=== PATIENT | female | born 1950 | race Caucasian/White ===

== ENCOUNTER → 2017-07-28 | Outpatient (CLI) | payer OTHER, MEDICARE ==
[~2017-07-28] VITALS: Ht 162.6 cm; Wt 77.1 kg
[~2017-07-28] MED LIST: ACID CONTROL75 MG PO; AMBIEN 10 MG TA10 MG PO; ARMOUR THYROID15 M1 PO; ASPIRIN EC81 M1 PO; CALCIUM 600 +1 EA13 PO; CALCIUM OYSTER500 MG PO; CELEBREX 200 M200 MG PO; COLACE100 MG PO; CYMBALTA30 MG PO; ESTRA TOP; ESTRACE1 MG PO; ESTRADIOL; HYDROCODON-ACE1 EAC7 PO; HYDROCODONE-AP1 EAC6 PO; IMITREX20 MG NASAL; IMITREX20 MG NS; LEVOTHROID75 MCG PO; MS CONTIN15 MG PO; MULTI VITAMIN1 EACH PO; MULTIVITAMIN PO; NEURONTIN 300300 M1 PO; NORCO 5-325 TA1 EACH PO; PRILOSEC40 MG PO; PROGESTERONE200 MG PO; ROBAXIN 750 MG750 M1 PO; TESTO; TESTOSTERONE TOP; TIZANIDINE HCL 22 M1 PO; TIZANIDINE HCL2 M1 PO; VITAMIN C1000 MG PO; VITAMIN D1000 UNI1 PO; VITAMINC500 PO; WELLBUTRIN XL150 M1 PO
--- NOTE | ~2017-07-28 | HPC ---
[facility] [place] [address] PAIN MANAGEMENT CONSULTATION Name: ALETHA CANO [id number] Admission: 07/28/17 Attend Phys: Rodri Bolanos DO Discharge: Date of : 54 Report #: [id number] THIS REPORT FOR: //name// CC: Aneudy Bolanos The patient is a delightful 66-year-old female, long known to the pain clinic for chronic pain issues, she has not been seen since 2014. Trigger point injections at that time. She had a decompressive laminectomy 10/08/2013 (lumbar). She had a cervical decompressive laminectomy, posterior approach about 10 years ago. She somewhat lost to follow up, she returns to pain clinic today with a new complaint that being pain in the right neck, shoulder and arm. Started without event about 6 weeks ago. She tried physical therapy, anti-inflammatory medications, all with nominal efficacy. She has taken gabapentin for some right leg pain. Prior to her surgery, she had symptoms in the posterior aspect of the right leg, now symptoms are more in the anterior thigh. PHYSICAL EXAMINATION: Shows a pleasant 66-year-old female, BMI is 29.2 kg/m2. Blood pressure is on EMR, pulse 67, respirations are 14. Cervical range of motion is limited, positive Lhermitte's radiating to the right shoulder, does have slight decreased right deltoid strength. Hand grasp; however, is symmetric. Deep tendon reflexes are symmetric and Tinel's is negative. Rises from chair using armrest. Gait is tandem. Lumbar flexion is good. Lower extremity strength is generally symmetric. Straight leg raise is equivocal on the right. ASSESSMENT: 1. Symptomatic cervical radiculopathy by clinical exam and history in a patient status post posterior decompressive laminectomy approximately decade ago. 2. Right lumbar radiculopathy more of a L3 pattern, status post decompressive laminectomy 10/08/2013. RECOMMENDATION: 1. Cervical epidural injection under fluoroscopy today. 2. Follow up in 2 weeks for reevaluation. If symptoms do not significantly improve, we will get an MRI of the cervical spine. PROCEDURE: Cervical epidural injection under fluoroscopy. PROCEDURE NOTE: After written and informed consent was obtained including risk of dural puncture, spinal cord trauma, paralysis and increased pain, the patient was taken to the fluoroscopy suite and placed in the prone position, with appropriate abdominal bolstering, neck was flexed, palms under the thighs. Skin was prepped with ChloraPrep. Sterile draping was applied. Skin wheal with 1% Xylocaine was raised. A 22-gauge 3-1/2 inch epidural Tuoh[place] [address] PAIN MANAGEMENT CONSULTATION Name: ALETHA CANO Room #: REG AJAY Ryan#: [id number] Admission: 07/28/17 Attend Phys: Rodri Bolanos DO Discharge: Date of : 54 Report #: [id number] via a midline approach at the C7-T1 interspace, advanced under biplanar fluoroscopy using continuous loss of resistance. With appropriate loss of resistance at the expected depth on lateral view, the glass loss of resistance syringe was disconnected. A low volume extension tubing was connected to the needle and a 5 mL syringe. Negative aspiration for cerebrospinal fluid or blood was noted. A 1 mL of Omnipaque was injected which showed spread within the epidural space on biplanar fluoroscopy. This was followed with 80 mg of triamcinolone plus 1 mL of 1.5% preservative Xylocaine. Needle was withdrawn to the interspinous ligament, 0.5 mL of Xylocaine was used to flush the needle. The needle was then completely withdrawn. The area was cleansed. Band-Aid was applied. The patient was allowed to move off the procedure table and ambulated to the recovery room, monitored for an appropriate period of time, discharged in good and stable condition. <ELECTRONICALLY SIGNED> By: Rodri Bolanos DO 08/03/17 0938 [id number] Rodri Bolanos DO /nt
[2017-07-28 11:24] VITALS: BP 101/42
== END ==
LOC: PAIN 07:07
DX: M54.12 Radiculopathy, cervical region (principal); M54.16 Radiculopathy, lumbar region; Z87.891 Personal history of nicotine dependence

== ENCOUNTER → 2017-10-27 | Outpatient (CLI) | payer OTHER, MEDICARE ==
[~2017-10-27] VITALS: Ht 162.6 cm; Wt 76.4 kg
--- NOTE | ~2017-10-27 | HPC ---
[facility] [place] [address] PAIN MANAGEMENT CONSULTATION Name: ALETHA CANO Room #: REG [facility].#: [id number] Admission: 10/27/17 Attend Phys: Rodri Bolanos DO Discharge: Date of : 54 Report #: [id number] THIS REPORT FOR: //name// CC: Aneudy Bolanos DATE OF SERVICE: 10/27/2017 HISTORY OF PRESENT ILLNESS: The patient is a very pleasant 66-year-old female, long known to the pain clinic, being treated for symptomatic lumbar radiculopathy status post decompressive laminectomy. She had a component of cervical radiculopathy and in fact had a cervical epidural injection at last visit that afforded good relief. She has had significant ongoing increase in pain, right leg radiating down anterolateral thigh below the knee and into the lateral foot. She has had 2 back surgeries, last surgery being on 09/19/2013, decompressive laminectomy L4-L5 for removal of synovial cyst with posterolateral fusion, iliac crest bone graft and morselized lamina. She did well for a period of time, but pain as noted has begun to recur. She has been taking gabapentin for the right leg issues, but with dwindling efficacy. PHYSICAL EXAMINATION: GENERAL: Today shows a pleasant 66-year-old female. NEUROLOGIC: Alert and oriented to person, place and time, judged to be a reasonable historian. VITAL SIGNS: Stable as noted in the EMR. MUSCULOSKELETAL: Rises from chair using the armrest. Modestly antalgic gait. Positive straight leg raise on the right. Slight decreased right plantar flexion, lower extremity extension and hip flexion strength, all on the right. Diffuse tenderness across the low back, though no discrete trigger points are noted. Has subjective axial back pain from about L4 down, but no reproducible symptoms. DIAGNOSTIC STUDIES: Somewhat dated, most recent MRI of the lumbar spine was prior to her 2014 surgery. ASSESSMENT: Symptomatic lumbar radiculopathy status post lumbar lami (x2) by clinical exam and history. RECOMMENDATIONS: 1. Right L3-L4 and right L4-L5 transforaminal epidural injection today. 2. Hydrocodone 5/325, limit 45 tablets, directions 1 q.4 hours as needed for pain. The patient cautioned about daytime somnolence, mental acuity changes and constipation. She is planning on going to [place] with her 2 of her grandchildren. We talked about increasing pain with activity. [address] [address] PAIN MANAGEMENT CONSULTATION Name: ALETHA CANO Room #: REG CLI [facility]#: [id number] Admission: 10/27/17 Attend Phys: Rodri Bolanos DO Discharge: Date of : 54 Report #: [id number] 3. We did talk about a spinal cord stimulator as a possible therapeutic option. This remains a viable possibility if we cannot control subjective pain symptoms otherwise. 4. We will order MRI of the lumbar spine with and without contrast. We would like to get this sometime next week if today's injection does not afford adequate relief and will follow up in 10 days to review diagnostic findings. PROCEDURE #1: Right L3-L4 transforaminal epidural injection under fluoroscopy. PROCEDURE NOTE: After both written and informed consent was obtained including risk of spinal cord damage, infection, increased pain and paralysis, the patient agreed to proceed. The patient was taken to the fluoroscopy suite, placed in a prone position with appropriate abdominal bolstering. After sterile prep with ChloraPrep and sterile drape, a skin wheal with 1% Xylocaine was raised. A 22 gauge 4-1/2 inch epidural Tuohy needle was inserted. From an oblique approach into the posterior-superior aspect of the right L3-L4 neural foramen with continuous pressure on the glass syringe plunger for loss of resistance. Glass syringe was filled with 2 mL of 0.1 Xylocaine. The glass loss of resistance syringe was removed. A low volume extension tubing was connected, negative aspiration was accomplished for cerebrospinal fluid or blood. 1 mL of Omnipaque was injected which showed spread both within the epidural space and laterally along the nerve root. This was followed with 40 mg of triamcinolone plus 1 mL of 1.5% preservative-free Xylocaine. Needle was partially withdrawn, 0.5 mL of Xylocaine was injected to clear the needle and the needle was removed. The area was cleansed, Band-Aid was applied. The patient was allowed to ambulate to the recovery room, discharged in good and stable condition. PROCEDURE #2: Right L4-L5 transforaminal epidural injection under fluoroscopy. PROCEDURE NOTE: After both written and informed consent was obtained including risk of spinal cord damage, infection, increased pain and paralysis, the patient agreed to proceed. The patient was taken to the fluoroscopy suite, placed in a prone position with appropriate abdominal bolstering. After sterile prep with ChloraPrep and sterile drape, a skin wheal with 1% Xylocaine was raised. A 22 gauge 4-1/2 inch epidural Tuohy needle was inserted. From an oblique approach into the posterior-superior aspect of the right L4-L5 neural foramen with continuous pressure on the glass syringe plunger for loss of resistance. Glass syringe was filled with 2 mL of 0.1 Xylocaine. The glass loss of resistance syringe was removed. A low volume extension tubing was connected, negative aspiration was accomplished for cerebrospinal fluid or blood. 1 mL of Omnipaque was injected which showed spread both within the epidural space and laterally along the nerve root. This was followed with 40 mg of triamcinolone plus 1 mL of 1.5% preservative-free Xylocaine. Needle was partially withdrawn, 0.5 mL of Xylocaine was injected to clear the needle and the needle was removed. The area [facility] [address] [place] [address] PAIN MANAGEMENT CONSULTATION Name: ALETHA CANO Room #: REG CLI [facility]#: [id number] Admission: 10/27/17 Attend Phys: Rodri Bolanos DO Discharge: Date of : 54 Report #: [id number] was cleansed, Band-Aid was applied. The patient was allowed to ambulate to the recovery room, discharged in good and stable condition. <ELECTRONICALLY SIGNED> By: Rodri Bolanos DO 10/30/17 0709 1244 2256 Rodri Bolanos DO /nt
[2017-10-27 12:29] VITALS: BP 153/88
== END | disposition home or self-care (01) ==
LOC: PAIN 07:10
DX: M54.16 Radiculopathy, lumbar region (principal); G89.29 Other chronic pain; Z98.890 Other specified postprocedural states; Z79.891 Long term (current) use of opiate analgesic; Z87.891 Personal history of nicotine dependence; Z88.0 Allergy status to penicillin

== ENCOUNTER → 2017-11-01 | Outpatient (CLI) | payer OTHER, MEDICARE | LOC: LAB 05:45 | DX: M47.896 Other spondylosis, lumbar region (principal); M48.061 Spinal stenosis, lumbar region without neurogenic claudication; M51.27 Other intervertebral disc displacement, lumbosacral region; M47.897 Other spondylosis, lumbosacral region ==

== ENCOUNTER → 2017-11-06 | Outpatient (CLI) | payer OTHER, MEDICARE ==
[~2017-11-06] VITALS: Ht 162.6 cm; Wt 76.1 kg
--- NOTE | ~2017-11-06 | HPC ---
[facility] Isabel Cochran [facility] [place] [address] PAIN MANAGEMENT CONSULTATION Name: ALETHA CANO Jaycee [facility]: [facility] [id number] Admission: 11/06/17 Attend Phys: Rodri Bolanos DO Discharge: Date of : 54 Report #: [id number] THIS REPORT FOR: //name// CC: ELENA FARIA The patient is a very pleasant 66-year-old female, being treated for symptomatic lumbar radiculopathy, status post decompressive laminectomy. Last seen in pain clinic on 10/27/2017. She has been treated for symptomatic lumbar radiculopathy, status post decompressive laminectomy. She has had cervical epidural injections in the distant past. She has had 2 back surgeries, last one being 09/19/2013. She had a decompressive hemilaminectomy at L4-L5, removal of synovial cyst and had a morselized lamina, iliac crest bone graft, posterolateral fusion. She did well for a period of time, but the pain has recurred in the right leg, L4 distribution with pain in the groin and weakness to hip flexion, lower extremity extension. I did right L3-L4 and right L4-L5 transforaminal epidural injection at last visit with good yet transient improvement of symptoms. She returns to pain clinic today noting that the injection afforded some 75% relief in right radicular pain, but only for 3 days. Pain is beginning to recur. She was able to better sleep and still rates her pain only 3 on a VAS, but notes pain is problematic. She has to lift her right leg when getting into the car sometimes. I ordered MRI of the lumbar spine, I had indicated in the dictation, we wanted to do with and without contrast. Unfortunately, study was ordered without contrast. Nonetheless, MRI was accomplished on 11/01/2017 and does note L4-L5 to have post-surgical changes of prior right hemilaminectomy with moderate to severe right facet arthrosis and medial right neural foraminal stenosis. Today, she notes subjective pain at 3 on a VAS, more concerned with weakness in the right leg. PHYSICAL EXAMINATION: Otherwise shows pleasant 66-year-old female, BMI is 28.8 kilograms per meter squared. Vital signs stable as noted in the EMR. Rises from chair using armrest, modestly antalgic gait. MUSCULOSKELETAL: Decreased right hip flexion, lower extremity extension strength. Straight leg raise is equivocal. Patellar and Achilles reflexes are generally preserved, although right patella may be nominally decreased compared to the contralateral left common side. RECOMMENDATIONS: Long discussion with the patient today about therapeutic options. I did take the opportunity to contact Dr. Heard's office. I spoke with Rajani Albarran APRN and reviewed the patient's findings. They will plan on moving forward with followup evaluation. She may benefit from a revision surgery at this right L4-L5 neural foraminal area versus consideration for spinal cord stimulator. The patient would like to travel out of the country to [address] [address] PAIN MANAGEMENT CONSULTATION Name: JEROMEALETHA E Room #: REG [facility] Ryan#: [id number] Admission: 11/06/17 Attend Phys: Rodri Bolanos DO Discharge: Date of : 54 Report #: [id number] [place] and to with her sister, but she is loathe to travel out of the country with ongoing pain and weakness in the right leg. She is traveling to [place] next week to spend a week with her grandchildren. We will try and have her follow up with Dr. Heard's office on return. I reviewed with the patient that I am leaving the practice. We will have her follow up with Dr. Hutchison or Dr. Gray after following up with Dr. Heard early next week. She was seen for prolonged visit today from 11:26-11:55, greater than 50% of time spent counseling the patient, reviewing therapeutic options. Discharged in good and stable condition. By: 1223 [id number] Rodri Bolanos DO /nt
[2017-11-06 11:21] VITALS: BP 132/78
== END ==
LOC: PAIN 06:32
DX: M47.26 Other spondylosis with radiculopathy, lumbar region (principal); M48.061 Spinal stenosis, lumbar region without neurogenic claudication; M79.604 Pain in right leg

== ENCOUNTER → 2018-02-20 | Outpatient (CLI) | payer OTHER, MEDICARE ==
[2018-02-13 12:49] VITALS: BP 102/64
[2018-02-13 13:04] VITALS: BP 109/85
[~2018-02-20] VITALS: Ht 162.6 cm; Wt 81.0 kg
--- NOTE | ~2018-02-20 | HPC ---
[facility] [place] [address] PAIN MANAGEMENT CONSULTATION Name: ALETHA CANO [facility] [id number] Admission: 02/20/18 Attend Phys: Emory Bolanos DO Discharge: Date of : 54 Report #: [id number] THIS REPORT FOR: //name// CC: Emory Amado September DATE OF SERVICE: 02/20/2018 REFERRING PHYSICIAN: Aneudy Heard MD CHIEF COMPLAINT: Low back pain, right lower extremity pain and paresthesias. HISTORY OF PRESENT ILLNESS: As you know, the patient is a 67-year-old female followed by my partner, Dr. Rodri Bolanos for symptomatic lumbar radiculopathy status post decompressive laminectomy with continued radicular symptoms. She has undergone transforaminal epidural injections to address L4-L5 distribution of symptoms. Today, she is having a distribution that is now on the anterior thigh radiating only to the knee, which would correlate to the L3 and L4 distribution and not the L4-L5. She did receive transient improvement in symptoms with previous transforaminal epidural injections, which only provided about a 90% improvement in symptoms lasting less than a month, which is a significant reduction in the patient's typical findings. She returns today in followup visit with L3-L4 dermatomal distribution of pain on the right side. She denies new injury or trauma or any changes in medical history since our last visit. ALLERGIES: PENICILLIN. CURRENT MEDICATIONS: Calcium carbonate, cholecalciferol, [place] Thyroid, duloxetine, progesterone, ascorbic acid, multivitamin, tizanidine, sumatriptan, estradiol, gabapentin, hydrocodone. SOCIAL HISTORY: The patient denies tobacco, alcohol, IV or illicit drug use. She is unaccompanied today. IMAGING: No new imaging available. PQRS: The patient has bilateral osteoarthritis of the hands and knees. No history of rheumatoid arthritis. Pain intensity is rated at 2-3/10. She is not a fall risk, has not had a fall in the last 3 months. She is not on blood thinners, not treated for hypertension. She is not on chronic opioids. She has a moderate risk for opioid addiction. Functional assessment pain impact tool indicates 46/70, moderate to severe. PHYSICAL EXAMINATION: [facility] [address] [place] [address] PAIN MANAGEMENT CONSULTATION Name: ALETHA CANO [facility] [id number] Admission: 02/20/18 Attend Phys: Emory Bolanos DO Discharge: Date of : 54 Report #: [id number] VITAL SIGNS: Blood pressure 134/74, pulse 54, respiratory rate 14 and unlabored. The patient is 99% on room air. Height 5 feet 4 inches tall, weight is 178.6 pounds, BMI calculated 30.6. GENERAL: Well-developed, well-nourished, well-hydrated exogenously obese 67-year-old female. She appears her stated age. Pain is rated around 2-3/10. HEENT: Normocephalic, atraumatic. Pupils equal, round, reactive to light. Extraocular muscles are intact. EXTREMITIES: Show no clubbing, no cyanosis, and no edema. MUSCULOSKELETAL: Lower extremity strength appears symmetrical 5/5. Muscle bulk and tone equal and symmetrical. Well-healed surgical scar over the lumbar region. There is some palpatory tenderness over the paraspinal musculature. No spinous process tenderness. Seated straight leg raising negative. Supine straight leg raising positive right. Ashutosh's test negative. Modified Gaenslen's positive for axial low back pain. Gait mildly antalgic favoring right lower extremity over left. ASSESSMENT: 1. Symptomatic lumbar radiculopathy. 2. Displacement of lumbar intervertebral disk with radiculopathy. 3. Lumbosacral spondylosis with radiculopathy. 4. Post-laminectomy syndrome. 5. Lumbar degeneration. 6. Chronic intractable pain. PLAN: 1. The patient returns today in followup visit requesting to undergo injection to address lumbar radicular symptoms radiating down the right side in the distribution of L3 and L4. She has had resolution of her L4-L5 distribution, which is her typical pain for which the patient underwent surgery with Dr. Aneudy Liu. She returns today requesting an injection to address this increasing anterior thigh and right knee pain. The patient denies any new injury, new trauma. We discussed treatment options with the patient and I would recommend an interlaminar right paramedian epidural injection at the L3-L4 level to address current symptoms. Transforaminal epidural injections provided in the past have given improvement, but this has begun to show less efficacy. I discussed this with the patient today. She is amenable to undergo the lumbar epidural injection with a right paramedian approach. She was advised the risks and benefits of procedure, states understood and wished to proceed. 2. No medication changes made at today's visit. The patient to continue current medical therapy as previously prescribed. 3. We will see the patient back in followup visit on an as needed basis for possible next in the series of injections. I did discuss with the patient a possibility of discussing her case further with Neurosurgery. At this point, we wish to see if conservative treatment options would be beneficial. If this is [address] [address] PAIN MANAGEMENT CONSULTATION Name: ALETHA CANO Room #: REG [facility]#: [id number] Admission: 02/20/18 Attend Phys: Emory Bolanos DO Discharge: Date of : 54 Report #: [id number] not the case, further discussion with surgery may be necessary. PROCEDURE NOTE: DESCRIPTION OF PROCEDURE: L3-L4 right paramedian epidural steroid injection under fluoroscopic guidance. After obtaining written consent, the patient was taken back to fluoroscopy suite, placed in prone position with pillow under abdomen to decrease lumbar lordosis. Skin overlying the lumbosacral area was prepped and draped in aseptic fashion. The lumbar intervertebral spaces were identified by AP fluoroscopy. Skin and subcutaneous tissue overlying target site of injection was then anesthetized with 3 mL of 1% lidocaine. A 20-gauge 3-1/2 inch Tuohy needle was advanced under fluoroscopic guidance towards the epidural space using a paramedian approach. Epidural space identified using loss of resistance to air technique. After negative aspiration for heme or cerebrospinal fluid, 0.2 mL of Omnipaque injected. A lumbar epidurogram confirmed using both AP and lateral fluoroscopy. After negative aspiration for heme or cerebrospinal fluid, 4 mL of a solution containing 2 mL 40 mg per mL, 80 mg total triamcinolone, 2 mL of lidocaine 1% injected slowly. Needle retracted skilled nursing, flushed with 1 mL of 1% lidocaine and removed. Sterile bandage placed over injection site. No new motor deficits present in lower extremity following procedure. The patient tolerated the procedure well, carefully escorted to the recovery room in stable condition. No apparent complications. After meeting discharge criteria, the patient discharged home. <ELECTRONICALLY SIGNED> By: Emory Bolanos DO 02/27/18 0727 0834 1511 Emory Bolanos DO /nt
[2018-02-20 13:02] VITALS: BP 134/74
== END | disposition home or self-care (01) ==
LOC: PAIN 02-13 07:17
DX: M51.16 Intervertebral disc disorders with radiculopathy, lumbar region (principal); M47.27 Other spondylosis with radiculopathy, lumbosacral region; M96.1 Postlaminectomy syndrome, not elsewhere classified; G89.29 Other chronic pain; M19.042 Primary osteoarthritis, left hand; M19.041 Primary osteoarthritis, right hand; M17.0 Bilateral primary osteoarthritis of knee; E66.9 Obesity, unspecified; Z98.890 Other specified postprocedural states; Z88.0 Allergy status to penicillin; Z79.899 Other long term (current) drug therapy; Z87.891 Personal history of nicotine dependence

== ENCOUNTER → 2018-04-04 | Outpatient (CLI) | payer OTHER, MEDICARE ==
[~2018-04-04] VITALS: Ht 162.6 cm; Wt 82.3 kg
[~2018-04-04] MED LIST changes: +NATURE THROID PO
--- NOTE | ~2018-04-04 | HPC ---
[facility] [address] [place] [address] PAIN MANAGEMENT CONSULTATION Name: ALETHA CANO [facility] [id number] Admission: 04/04/18 Attend Phys: Emory Bolanos DO Discharge: Date of : 54 Report #: [id number] THIS REPORT FOR: //name// CC: RACHEL LEUNG DATE OF SERVICE: 04/04/2018 CHIEF COMPLAINT: Low back pain, right lower extremity pain and paresthesias. HISTORY OF PRESENT ILLNESS: As you know, the patient is a 67-year-old female who has had longstanding history of low back pain and right lower extremity pain with paresthesias, affecting the L4 dermatomal distribution. She returns today in followup visit reporting pain score 4/10, states her pain is aching in sensation; exacerbated with lying down, sitting and standing; improves with repositioning, medications and previous epidural injections. She reports the past epidural injection gave 90% improvement in overall pain lasting for nearly 5 weeks. Unfortunately, her symptoms have returned to a point where they are no longer tolerable. She returns to undergo epidural injection. ALLERGIES: PENICILLIN. CURRENT MEDICATIONS: Calcium, cholecalciferol, duloxetine, progesterone, ascorbic acid, multivitamin, tizanidine, sumatriptan, estradiol, gabapentin, hydrocodone and Nature-Throid. PQRS: The patient has osteoarthritis of the hands. No rheumatoid arthritis, placing pain intensity 4/10. She is not a typical fall risk, but has had a fall in the last 3 months. She is not on blood thinners. She is not treated for hypertension. She is a low risk for opioid addiction potential. She is placing pain impact score of 46/70, severe, interference with daily activities secondary to pain. IMAGING: No new imaging available. PHYSICAL EXAMINATION: VITAL SIGNS: Blood pressure 130/52, pulse 74, respiratory rate is 12 and unlabored. The patient is 98% on room air. Height 5 feet 4 inches tall, weight 181.4 pounds, BMI calculated 31.1. GENERAL: Well-developed, well-nourished, well-hydrated 67-year-old female, appearing her stated age, placing current pain score at 4/10. HEENT: Normocephalic, atraumatic. Pupils equal, round, reactive to light. EXTREMITIES: Show no clubbing, no cyanosis, no edema. MUSCULOSKELETAL: Lower extremity strength appears symmetrical 5/5, intact to [facility] [address] [place] [address] PAIN MANAGEMENT CONSULTATION Name: ALETHA CANO [facility] [id number] Admission: 04/04/18 Attend Phys: Emory Bolanos DO Discharge: Date of : 54 Report #: [id number] light touch from L1 through S2 dermatomes. Seated straight leg raising negative. Supine straight leg raising positive on the right. Ashutosh's test is negative. ASSESSMENT: 1. Symptomatic lumbar radiculopathy. 2. Lumbosacral spondylosis with radiculopathy. 3. Displacement of lumbar intervertebral disk with radiculopathy. 4. Lumbar degeneration. 5. Chronic intractable pain. PLAN: 1. The patient returns today in followup visit having noted excellent benefit with previous epidural injection, 90% improvement in overall pain lasting for nearly 5 weeks. Unfortunately, her symptoms have begun to return. She returns requesting next in the series of epidural injections. She has been advised of risks and benefits of this procedure, states she understood and wished to proceed. 2. No medication changes made at today's visit. The patient will continue current medical therapy as previously prescribed. 3. We will see the patient back in followup visit on an as needed basis for the possible next in the series of epidural injections. DESCRIPTION OF PROCEDURE: L3-L4 interlaminar epidural steroid injection under fluoroscopic guidance. After obtaining written consent, the patient was taken back to fluoroscopy suite, placed in prone position with pillow under abdomen to decrease lumbar lordosis. Skin overlying lumbosacral area then prepped and draped in aseptic fashion. Lumbar intervertebral spaces were identified by AP fluoroscopy. Skin and subcutaneous tissue overlying target site of injection was anesthetized with 3 mL of 1% lidocaine. A 20-gauge 3-1/2 inch Tuohy needle advanced under fluoroscopic guidance towards the epidural space using a parasagittal approach. Epidural space identified using loss of resistance to air technique. After negative aspiration for heme or cerebrospinal fluid, 0.3 mL of Omnipaque were injected. A lumbar epidurogram was confirmed using both AP and lateral fluoroscopy. After negative aspiration for heme or cerebrospinal fluid, 5 mL of a solution containing 2 mL 40 mg per mL, 80 mg total triamcinolone, 3 mL lidocaine 1% injected slowly. Needle retracted mcc, flushed with 1 mL of 1% lidocaine and removed. Sterile bandage was placed over injection site. No new motor deficits present in the lower extremities following procedure. The patient tolerated the procedure well, carefully escorted to recovery room in [facility] [address] [place] [address] PAIN MANAGEMENT CONSULTATION Name: ALETHA CANO Room #: [facility]#: [id number] Admission: 04/04/18 Attend Phys: Emory Bolanos DO Discharge: Date of : 54 Report #: [id number] stable condition. No apparent complications. After meeting discharge criteria, the patient discharged home. By: [id number] Emory Bolanos DO /nt
[2018-04-04 10:52] VITALS: BP 130/52
== END | disposition home or self-care (01) ==
LOC: PAIN 07:11
DX: M51.16 Intervertebral disc disorders with radiculopathy, lumbar region (principal); M47.27 Other spondylosis with radiculopathy, lumbosacral region; G89.29 Other chronic pain; Z88.0 Allergy status to penicillin; Z79.899 Other long term (current) drug therapy; M19.042 Primary osteoarthritis, left hand; M19.041 Primary osteoarthritis, right hand; I10 Essential (primary) hypertension; Z79.891 Long term (current) use of opiate analgesic; Z87.891 Personal history of nicotine dependence

== ENCOUNTER → 2018-06-26 | Outpatient (CLI) | payer OTHER, MEDICARE | LOC: MRI 14:36 | DX: M47.26 Other spondylosis with radiculopathy, lumbar region (principal); M43.16 Spondylolisthesis, lumbar region; M51.16 Intervertebral disc disorders with radiculopathy, lumbar region; M51.27 Other intervertebral disc displacement, lumbosacral region; M47.897 Other spondylosis, lumbosacral region ==

== ENCOUNTER → 2018-07-25 | Outpatient (CLI) | payer OTHER, MEDICARE ==
[~2018-07-25] VITALS: Ht 162.6 cm; Wt 79.0 kg
[~2018-07-25] MED LIST changes: +MOBIC15 MG PO; +SYNTHROID75 MCG PO; +VENTOLIN HFA 1818 GM INH
[2018-07-25 08:45] VITALS: BP 131/64
--- NOTE | 2018-07-25 09:00 | NUR ---
Pain Clinic Assessment: 1. History of Osteoarthritis: HANDS History of Rheumatoid Arthritis: Not Applicable 2. Height: 5 ft. 4 in. 162.6 cm. Weight: 174.2 lb. oz. 79.017 kg. Patient's BMI: 29.9 3. Vital Signs: BP: 131/64 Pulse: 72 Resp: 14 Temp: 02 Sat: 100 ECG Mon: 4. Pain Intensity: 4 5. Fall Risk: Dizziness: Y Needs help standing or walking: N Fallen in the last 3 months: N Fall risk comments: 6. Patient on Blood Thinner: None 7. History of Hypertension: N 8. Opioid Therapy greater than 6 weeks: N Opiate Contract Signed: 9. Risk Assessment Tool Provided: LOW RISK 3 10. Functional Assessment Tool: 11. Recreational Drug Use: Never Drug Type: Tobacco Use: Former Smoker Tobacco Type: Amount or Packs/day: How Many Years: Alcohol Use: No Frequency: Quant:
--- NOTE | 2018-07-31 07:50 | HPC ---
[facility] [address] [place] [address] PAIN MANAGEMENT CONSULTATION Name: ALETHA CANO [facility] #[facility] [id number] Admission: 07/25/18 ������������������ Attend Phys: Emory Bolanos DO Discharge: ������������������ Date of : 54 Report #: [id number] THIS REPORT FOR: //name// CC: Emory Marin Referring Physician DATE OF SERVICE: 07/25/2018 CHIEF COMPLAINT: Low back pain, right lower extremity pain and paresthesias. HISTORY OF PRESENT ILLNESS: As you know, the patient is a 67-year-old female with longstanding history of low back pain, right lower extremity pain with paresthesias, affecting L4 dermatomal distribution. She returns today in followup visit per the request of her neurosurgeon to discuss the possibility of undergoing a spinal cord stimulator trial implantation to assist in pain control. The patient indicates pain level is anywhere from 4 to 8/10 depending on activity. She has had multiple epidural injections each of which have provided good benefit, but unfortunately no longstanding benefits. She returns today requesting a discussion about spinal cord stimulator technology. ALLERGIES: PENICILLIN. CURRENT MEDICATIONS: Calcium, cholecalciferol, duloxetine, progesterone, ascorbic acid, multivitamin, tizanidine, sumatriptan, estradiol, gabapentin, hydrocodone and Nature-Throid. PQRS: The patient has osteoarthritic changes of the hands. No rheumatoid arthritis. She is placing pain intensity anywhere from 4 to 10/10. She is not a fall risk, has not had a fall in the last 3 months. She is not on blood thinners. She is not treated for hypertension. She has a low opioid addiction potential placing pain impact score about 50/70, severe interference of daily activities secondary to pain. IMAGING: No new imaging available. PHYSICAL EXAMINATION: GENERAL: Well-developed, well-nourished, well-hydrated exogenously obese 67-year-old female, appearing her stated age. Pain is rated anywhere from 4 to 10/10. HEENT: Normocephalic and atraumatic. Pupils are equal, round and reactive to light. Extraocular muscles are intact. EXTREMITIES: Show no clubbing, no cyanosis and no edema. MUSCULOSKELETAL: Lower extremity strength remains symmetrical 5/5. She is intact to light touch from L1 through S2 dermatomes. Muscle bulk and tone are equal and symmetrical in comparing left lower extremity to right. Seated [address] [address] PAIN MANAGEMENT CONSULTATION Name: ALETHA CANO Room #: REG CLJose E Ryan#: [id number] Admission: 07/25/18 ������������������ Attend Phys: Emory Bolanos DO Discharge: ������������������ Date of : 54 Report #: [id number] straight leg raising is negative. Supine straight leg raising is positive on the right. Ashutosh's test is negative. ASSESSMENT: 1. Symptomatic lumbar radiculopathy. 2. Lumbosacral spondylosis with radiculopathy. 3. Displacement of lumbar intervertebral disk with radiculopathy. 4. Lumbar degeneration. 5. Chronic intractable pain. PLAN: 1. The patient has returned today in followup visit where she has been requested to discuss with us today possibility of undergoing a spinal cord stimulator trial implantation. We discussed with the patient the device itself, its risks, its benefits and the general techniques in which a trial is implemented and the permanent implant would be completed if greater than 80% improvement in overall symptoms is noted with the trial device. After going over this for approximately 35 minutes of time, the patient and I discussed the logistics required to move forward with the trial implantation as the patient was interested in moving towards trial. The patient will be sent for psychiatric evaluation. We have given the patient the names of various physicians in the area who provide SES evaluation from a psychiatric standpoint. Once the patient has completed the psychiatric consultation, we will review the findings. If she is deemed an appropriate candidate from a psychiatric standpoint to undergo a trial implantation, we would then move forward with scheduling the trial. Once the trial is completed and assuming she sees excellent improvement then move forward with permanent implant. 2. The patient was given information about the [employer]onic spinal cord stimulator. The information was given to the patient both in written and digital form. She will review this information before her psychiatric evaluation as questions will be provided in regards to the spinal cord stimulator and her understanding of the device itself. As indicated above, we spent over 30 minutes of time discussing that today. She should have a fairly good working knowledge of the device. 3. Once the patient has completed her psychiatric evaluation, she will contact our clinic. We will review those findings and then begin the process of scheduling the patient for a trial implantation assuming she is an excellent candidate to move forward. ��������������������������������������������� <ELECTRONICALLY SIGNED> ���������������������������������������� By: Emory Bolanos DO ��������������������������������������������� 07/31/18 0750 [id number] Emory Bolanos DO /nt
== END ==
LOC: PAIN 06:50
DX: M51.16 Intervertebral disc disorders with radiculopathy, lumbar region (principal); M47.27 Other spondylosis with radiculopathy, lumbosacral region; G89.29 Other chronic pain; Z79.891 Long term (current) use of opiate analgesic; Z88.0 Allergy status to penicillin

== ENCOUNTER → 2018-08-15 | Outpatient (CLI) | payer OTHER, MEDICARE ==
[~2018-08-15] VITALS: Ht 162.6 cm; Wt 75.8 kg
[2018-08-15 07:23] VITALS: BP 123/59
--- NOTE | 2018-08-15 07:28 | NUR ---
Pain Clinic Assessment: 1. History of Osteoarthritis: HANDS History of Rheumatoid Arthritis: Not Applicable 2. Height: 5 ft. 4 in. 162.6 cm. Weight: 167.0 lb. oz. 75.751 kg. Patient's BMI: 28.7 3. Vital Signs: BP: 123/59 Pulse: 75 Resp: 16 Temp: 02 Sat: 100 ECG Mon: 4. Pain Intensity: 3 5. Fall Risk: Dizziness: N Needs help standing or walking: N Fallen in the last 3 months: N Fall risk comments: 6. Patient on Blood Thinner: None 7. History of Hypertension: N 8. Opioid Therapy greater than 6 weeks: N Opiate Contract Signed: 9. Risk Assessment Tool Provided: LOW RISK 3 10. Functional Assessment Tool: 46/ 11. Recreational Drug Use: Never Drug Type: Tobacco Use: Former Smoker Tobacco Type: Amount or Packs/day: How Many Years: Alcohol Use: No Frequency: Quant:
--- NOTE | 2018-08-20 08:05 | HPC ---
[facility] [address] [place] [address] PAIN MANAGEMENT CONSULTATION Name: ALETHA CANO [facility] [id number] Admission: 08/15/18 ������������������ Attend Phys: Emory Bolanos DO Discharge: ������������������ Date of : 54 Report #: [id number] THIS REPORT FOR: //name// CC: Emory Amado September DATE OF SERVICE: 08/15/2018 CHIEF COMPLAINT: Low back pain, right lower extremity pain with paresthesias. HISTORY OF PRESENT ILLNESS: As you know, the patient is a very pleasant 67-year-old female who returns today in followup visit having received preauthorization to undergo spinal cord stimulator trial implant. The patient is placing pain today at a level of 3/10, states her pain is chronic in nature, aching, numbness, tingling when describing pain. Pain begins in low back, radiates down the right leg. As you are aware, the patient was referred to our clinic to trial a spinal cord stimulator. If this is successful at treating the patient's symptoms, she is planning to undergo permanent implant with the referring physician, Dr. Angel Heard. She returns today to undergo spinal cord stimulator trial implantation with the Medtronic device. ALLERGIES: PENICILLIN. CURRENT MEDICATIONS: Calcium, cholecalciferol, duloxetine, progesterone, ascorbic acid, multivitamin, tizanidine, sumatriptan, estradiol, gabapentin, hydrocodone, Nature-Throid. SOCIAL HISTORY: The patient denies tobacco, alcohol, IV or illicit drug use. She is accompanied by her present in room today. IMAGING: No new imaging available. PHYSICAL EXAMINATION: VITAL SIGNS: Blood pressure 123/59, pulse 75, respiratory rate 16 and unlabored. The patient is 100% on room air. Height 5 feet 4 inches tall, weight 167 pounds, BMI calculated 28.7. GENERAL: Well-developed, well-nourished, well-hydrated 67-year-old female appearing stated age, placing current pain score at 3/10. HEENT: Normocephalic, atraumatic. Pupils equal, round, reactive to light. EXTREMITIES: Show no clubbing, no cyanosis, and no edema. MUSCULOSKELETAL: Lower extremity strength is symmetrical 5/5. She is intact to light touch from L1 through S2 dermatomes. Seated straight leg raising negative. Supine straight leg raising positive right. Ashutosh's test negative. ASSESSMENT: [facility] [address] [place] [address] PAIN MANAGEMENT CONSULTATION Name: JEROMEALETHA E Room #: REG CLI [facility]#: [id number] Admission: 08/15/18 ������������������ Attend Phys: Emory Bolanos DO Discharge: ������������������ Date of : 54 Report #: [id number] 1. Symptomatic lumbar radiculopathy. 2. Lumbosacral spondylosis with radiculopathy. 3. Displacement of lumbar intervertebral disk with radiculopathy. 4. Lumbar degeneration. 5. Chronic intractable pain. PLAN: 1. The patient returns today in followup visit having received precertification to undergo spinal cord stimulator trial implantation with the [employer] device. This is per the request of Dr. Angel Heard. The patient and I discussed at length today the risks and the benefits of a spinal cord stimulator trial implantation. These risks include but not necessarily limited to bleeding, bruising, infection, worsening pain, no relief of pain, also risk of temporary or permanent muscle weakness, temporary or permanent nerve damage, possible paralysis, post-dural puncture headache and . The patient states she understood and wished to proceed. 2. No medication changes made at today's visit. The patient will continue current medication management as prior prescribed. 3. We will see the patient back in followup visit in 1 week. At that time, we will discuss the efficacy of the spinal cord stimulator trial and whether or not she will be moving forward with the permanent implant. ��������������������������������������������� <ELECTRONICALLY SIGNED> ���������������������������������������� By: Emory Bolanos DO ��������������������������������������������� 08/20/18 0805 1456 [id number] Emory Bolanos DO /nt
--- NOTE | 2018-08-20 08:05 | P ---
[address] [place] [address] PROCEDURE REPORT Name: ALETHA CANO [facility] #[facility] [id number] Admission: 08/15/18 ������������������ Attend Phys: Emory Bolanos DO Discharge: ������������������ Date of : 54 Report #: [id number] THIS REPORT FOR: //name// CC: Emory Amado September DATE OF SERVICE: 08/15/2018 PROCEDURE: Spinal cord stimulator trial implantation under fluoroscopic guidance. DESCRIPTION OF PROCEDURE: After obtaining informed consent, an IV Hep-Lock was placed in the patient's upper extremity. The patient was given IV prophylactic antibiotic infused over 30 minutes prior to procedure. The patient was then taken to the fluoroscopy suite, placed in prone position with 2 pillows under the abdomen to increase the thoracic kyphosis. Cardiopulmonary monitoring was established and the patient's vital signs were monitored throughout the procedure. The patient's thoracolumbar spine was then prepped with chlorhexidine and draped in a usual sterile fashion. The patient was not given IV sedation prior to procedure. An AP fluoroscopic imaging was obtained to identify a marked midline position until the T10 through L2 spinous processes. The skin anesthetized with 7 mL of preservative-free lidocaine 1% on the right and 6 mL of preservative-free 1% lidocaine on the left. This was done prior to the introduction of the 14-gauge 4-inch Tuohy needles. The skin entry site was at the approximate level of the L1 vertebral body. Needle was advanced using a paramedian approach to the right of midline at approximately 45-degree angle. Loss of resistance to air was utilized to verify placement of the Tuohy needle within the epidural space. Epidural space was entered at the T11-T12 interspace. A lateral fluoroscopic view was obtained to confirm the position of the Tuohy needle within the epidural space. Aspiration noted to be negative for heme or cerebrospinal fluid. The patient did not complain of pain or paresthesias during needle placement. The spinal cord stimulating lead was then advanced through the Tuohy needle under direct visualization within the midline. Tip of the stimulating lead was aligned with the superior endplate of T8 and located within the midline. Our attention was then directed to the left side where the 14-gauge 4-inch needle was advanced under fluoroscopic guidance towards the midline at approximately 45-degree angle. Loss of resistance to air was utilized to verify placement within the epidural space. Epidural space was entered at the T11-T12 interspace. Lateral fluoroscopic view was obtained to confirm position of the Tuohy needle within the epidural space. Aspiration noted to be negative for heme or cerebrospinal fluid. The patient did not complain of pain or [address] [address] PROCEDURE REPORT Name: ALETHA CANO Room #: REG AJAY Ryan#: [id number] Admission: 08/15/18 ������������������ Attend Phys: Emory Bolanos DO Discharge: ������������������ Date of : 54 Report #: [id number] paresthesias during the needle placement. Spinal cord stimulating lead was then advanced through the Tuohy needle under direct visualization within the midline. The tip of the stimulating lead was aligned with the inferior endplate of T7 within the midline. The stylets were then removed from the spinal cord stimulating leads followed by the Tuohy needles. We did this extraction of the stylet and Tuohy needles under visualization of fluoroscopic imaging to confirm no movement of the leads during this explantation process. The leads were confirmed in position and taped into place with Steri-Strips and OpSite bandaging. The temporary connector was then attached to the lead and confirmed a good resistance within normal tolerances. The patient was then placed in a seated position. We performed multiple maneuvers adjusting the leads for her typical movements. The patient was then laid back into a prone position. X-ray was obtained to confirm position of the leads for programming. The patient tolerated procedure well, carefully escorted to the recovery room in stable condition. No apparent complications. The patient was advised on how to utilize the device by the [employer]tr[employer] device solar manufacturer's representative. If the patient has difficulty with pain coverage or capture of the patient's symptoms, she is to contact the [employer] device solar manufacturer's representative. If she is experiencing any concerns of infection, increased drainage at the site, headache, fever, chills, night sweats, increasing back pain, she is to contact the on-call pain physician. The patient was given phone numbers for both the [employer] device solar manufacturer's representative and the on-call pain physician. She was discharged home after meeting our discharge criteria. ��������������������������������������������� <ELECTRONICALLY SIGNED> ���������������������������������������� By: Emory Bolanos DO ��������������������������������������������� 08/20/18 0805 1456 [id number] Emory Bolanos DO /nt
== END | disposition home or self-care (01) ==
LOC: PAIN 08-14 15:02
DX: M51.16 Intervertebral disc disorders with radiculopathy, lumbar region (principal); M47.27 Other spondylosis with radiculopathy, lumbosacral region; G89.29 Other chronic pain; Z88.0 Allergy status to penicillin; Z79.891 Long term (current) use of opiate analgesic; Z79.899 Other long term (current) drug therapy; Z98.890 Other specified postprocedural states

== ENCOUNTER → 2018-08-21 | Outpatient (CLI) | payer OTHER, MEDICARE ==
[~2018-08-21] VITALS: Ht 162.6 cm; Wt 76.8 kg
[2018-08-21 11:20] VITALS: BP 142/71
--- NOTE | 2018-08-21 11:45 | NUR ---
Pain Clinic Assessment: 1. History of Osteoarthritis: HANDS History of Rheumatoid Arthritis: Not Applicable 2. Height: 5 ft. 4 in. 162.6 cm. Weight: 169.4 lb. oz. 76.839 kg. Patient's BMI: 29.1 3. Vital Signs: BP: 142/71 Pulse: 78 Resp: 14 Temp: 02 Sat: 100 ECG Mon: 4. Pain Intensity: 2 5. Fall Risk: Dizziness: N Needs help standing or walking: N Fallen in the last 3 months: N Fall risk comments: 6. Patient on Blood Thinner: None 7. History of Hypertension: N 8. Opioid Therapy greater than 6 weeks: N Opiate Contract Signed: 9. Risk Assessment Tool Provided: LOW RISK 3 10. Functional Assessment Tool: 11. Recreational Drug Use: Never Drug Type: Tobacco Use: Former Smoker Tobacco Type: Amount or Packs/day: How Many Years: Alcohol Use: No Frequency: Quant:
--- NOTE | 2018-08-23 08:41 | HPC ---
[facility] [address] [place] [address] PAIN MANAGEMENT CONSULTATION Name: ALETHA CANO [id number] Admission: 08/21/18 ������������������ Attend Phys: Emory Bolanos DO Discharge: ������������������ Date of : 54 Report #: [id number] THIS REPORT FOR: //name// CC: RACHEL Amado September DATE OF SERVICE: 08/21/2018 REFERRING PHYSICIAN: Dr. Rachel Heard CHIEF COMPLAINT: Low back pain, right lower extremity pain and paresthesias. HISTORY OF PRESENT ILLNESS: As you know, the patient is a very pleasant 67-year-old female who returns today in followup visit having just completed her spinal cord stimulator trial implantation with good effects. Her pain now is at a level of no greater than 2/10. She reports with the spinal cord stimulator 80-90% improvement in overall pain. She is very pleased with the response to the spinal cord stimulator, wanting to move forward with permanent implant. She wishes to undergo the procedure with the referring physician, Dr. Rachel Heard. She did very well with the spinal cord stimulator trial implant. She had no complications with good and prolonged efficacy. She was able to return to all activities of daily living without significant pain interference. Her only concerns during the trial were the tape on her back causing some discomfort. ALLERGIES: PENICILLIN. CURRENT MEDICATIONS: Calcium, cholecalciferol, duloxetine, progesterone, ascorbic acid, multivitamins, tizanidine, sumatriptan, estradiol, gabapentin, hydrocodone, Nature-Throid. SOCIAL HISTORY: The patient denies tobacco, alcohol, IV or illicit drug use. She is unaccompanied today. PQRS: The patient has known osteoarthritic changes of the lumbar spine, bilateral hands. No rheumatoid arthritis. She is placing pain intensity today 2/10. She is not a fall risk. Has not had a fall in the last 3 months. She is not on blood thinner. She is not treated for hypertension. She is not on chronic opioids, but is a low risk for opioid addiction. She is placing a pain impact score when the device is not on at 46/70. Severe interference of daily activities secondary to pain. PHYSICAL EXAMINATION: VITAL SIGNS: Blood pressure 142/71, pulse 78, respiratory rate 14 and unlabored. The patient is 100% on room air. Height 5 feet 4 inches tall, weight 169.4 pounds, BMI calculated 29.1. [facility] [address] [place] [address] PAIN MANAGEMENT CONSULTATION Name: ALETHA CANO Room #: REG CLI [facility]#: [id number] Admission: 08/21/18 ������������������ Attend Phys: Emory Bolanos DO Discharge: ������������������ Date of : 54 Report #: [id number] GENERAL: Well-developed, well-nourished, well-hydrated 67-year-old female. She appears her stated age. She is in no acute distress, awake, alert and oriented x 3. Current pain score 2/10. HEENT: Normocephalic, atraumatic. Pupils are equal, round, and reactive to light. Extraocular muscles are intact. EXTREMITIES: Show no clubbing, no cyanosis, and no edema. MUSCULOSKELETAL: Lower extremity strength remains symmetrical at 5/5, intact to light touch from L1 to S2 dermatomes. Seated straight leg raising negative. Supine straight leg raising positive on the right. TIFFANY test is negative. There are 2 spinal cord stimulator leads in place with OpSite bandaging over the top. They appear clean, dry and intact. There does not appear to be any drainage at the insertion sites. ASSESSMENT: 1. Symptomatic lumbar radiculopathy. 2. Lumbosacral spondylosis with radiculopathy. 3. Displacement of the lumbar intervertebral disk with radiculopathy. 4. Lumbar degeneration. 5. Chronic intractable pain. PLAN: 1. The patient returns today in followup visit having successful spinal cord stimulator trial implantation. She has been utilizing the Qloud spinal cord stimulating device over the past week with 80-90% improvement in overall pain. She was able to return to the majority of activities of daily living without significant pain interference. She does wish to move forward with a permanent implantation. She has requested that she return to see her neurosurgeon, Dr. Rachel Heard, for placement of the device itself. We agree Dr. Heard would be an excellent candidate to place this device. He has excellent technique and has been successful with thousands of implantations. The patient will contact Dr. Heard's office to make an appointment to be seen back to discuss the implantation of the device. 2. We made no changes in the patient's medication management at this time. She will continue current medical therapy as previously prescribed. 3. The patient was placed in a seated position. We removed all OpSite bandaging and Steri-Strips. There were 2 spinal [address] leads in place. There was no erythema, no drainage at the insertion sites. These leads were extracted without complication. All electrodes were noted to be on each lead as were the tips of each leads. The explantation occurred without any paresthesias or pain. A sterile bandage was then placed over the injection site. The patient was advised to avoid getting the area wet for the next 24 hours. She can then return to normal activities. She will watch for any drainage from the insertion sites, contact her clinic if she has any concerns about infection. 4. We will see the patient back in followup visit on an as needed basis. We wish him luck with the permanent implant of the spinal cord stimulator. We are pleased to see that she received 80-90% improvement in overall pain with this [facility] [address] [place] [address] PAIN MANAGEMENT CONSULTATION Name: ALETHA CANO Room #: REG CL [facility]#: [id number] Admission: 08/21/18 ������������������ Attend Phys: Emory Bolanos DO Discharge: ������������������ Date of : 54 Report #: [id number] device and I do feel that she will see good and prolonged benefit with the permanent implant. Again, we wish to thank her for our opportunity to work on her case. We will see her back on an as needed basis. 5. We will take the liberty of contacting Dr. Heard's office today and establish an appointment for the patient to be seen to discuss scheduling for permanent implant given her 80-90% improvement in overall pain with the device. ��������������������������������������������� <ELECTRONICALLY SIGNED> ���������������������������������������� By: Emory Bolanos DO ��������������������������������������������� 08/23/18 [id number] Emory Bolanos DO /nt
== END ==
LOC: PAIN 06:52
DX: M47.27 Other spondylosis with radiculopathy, lumbosacral region (principal); F17.200 Nicotine dependence, unspecified, uncomplicated; G89.4 Chronic pain syndrome; Z88.0 Allergy status to penicillin; Z72.89 Other problems related to lifestyle; Z79.899 Other long term (current) drug therapy